=== PATIENT | male | born 1980 | race Caucasian/White ===

== ENCOUNTER 2024-06-13 06:23 | Day surgery (SDC) | payer BC ==
[2024-06-13 07:07] VITALS: RESP 16
[2024-06-13 07:20] LABS: ANION GAP 11.8 MEQ/L (5-15); Calcium 9.1 mg/dL (8.4-10.2); Creatinine 1 1.09 mg/dL (0.66-1.25); EST GLOMERULAR FILTRATION RATE 85.3 ML/MIN; Potassium 3.8 mmol/L (3.5-5.1)
[2024-06-13] MEDS ORDERED: DIPRIVAN 200 MG/20 ML IV ONE (08:24)
[2024-06-13] MEDS ORDERED: Xylocaine-Mpf 2% 5 Ml Vial ONE (08:24)
[2024-06-13] MEDS ORDERED: Versed 2 MG/2 ML Injection ONE (08:28)
[2024-06-13 08:53] VITALS: O2SAT 100
[2024-06-13 09:02] VITALS: TEMP 97.7
[2024-06-13 09:13] VITALS: BP 149/91; PULSE 73
--- NOTE | 2024-06-14 15:51 | OP ---
SURGERY DATE/TIME: 06/13/2024 0800-___ PREOPERATIVE DIAGNOSIS: Screening exam. POSTOPERATIVE DIAGNOSIS: Normal colon. PROCEDURE: Colonoscopy. SURGEON: Ton Jeffrey MD ANESTHESIA: Medication given by the Anesthesia department. HISTORY: The patient is a 43-year-old white male patient presenting now for screening colonoscopy. He was appraised of the risks of the procedure including risk of perforation, phlebitis, untoward reaction to medication, bleeding and missed lesions. The patient verbalized his understanding and desired to have the procedure performed. DESCRIPTION OF PROCEDURE AND FINDINGS: Patient was given medication by the Anesthesia department. He had continuous pulse oximetry, ECG monitoring, and intermittent blood pressure monitoring during the examination. He was placed in the left lateral decubitus position. Digital rectal examination was performed and revealed normal anal sphincter tone, no masses and a normal prostate. The flexible Olympus videocolonoscope was used to intubate the rectum. A view of the colon was developed sequentially to the cecum. Upon insertion and withdrawal, including retroflexion in the rectum, no mucosal lesions were encountered. The scope was removed. The patient tolerated the procedure well and was sent back to outpatient recovery in good condition. The prep was noted to be good.
== END 2024-06-13 09:17 | disposition home or self-care (01) ==
LOC: SDC 06:23
PROVIDERS: ATTEND Family Medicine
DX: Z12.11 Encounter for screening for malignant neoplasm of colon (principal)
CPT/HCPCS: 36415; 80048; J2250; J2704